=== PATIENT | female | born 1945 | race Caucasian/White ===

== ENCOUNTER 2024-06-24 09:28 | Outpatient (REF) | payer MEDICARE, SELFPAY ==
--- OUTSIDE RECORDS SUMMARY | 2024-06-26 10:15 | XMS_ITS | Clinical Summary ---
Author Organization [facility] Address [address] [place] [address] Care Team Providers Care Glost Placer Name Role Phone Quita Morris MD Primary Care Provider Allergies Active Allergy Reactions Criticality Noted Date Comments Aspirin Nausea And Vomiting 02/17/2018 Per pt okay with 81 mg enteric coated Celecoxib Itching,Other (See Comments) Low 02/17/2018 Codeine Itching 06/28/2021 Tramadol Itching 02/17/2018 Medications Medication Sig Dispensed Refills Start Date End Date Status Estradiol 10 MCG TABS Use 1 tablet vaginally 3 times per week 0 12/20/2020 Active SUMAtriptan (IMITREX) 100 MG tablet 0 12/20/2020 Active valACYclovir HCl (VALTREX PO) Take 500 mg by mouth. 0 05/27/2014 Active Probiotic Product (PROBIOTIC PO) Take by mouth daily. 0 Active Multiple Vitamins-Minerals (MULTIVITAMIN ADULTS PO) Take by mouth daily. 0 Active acetaminophen (TYLENOL EXTRA STRENGTH) 500 MG tablet Take 2 tablets (1,000 mg total) by mouth every 8 (eight) hours. 30 tablet 0 07/28/2021 Active senna-docusate (PERICOLACE) 8.6-50 MG Take 1 tablet by mouth 2 (two) times a day. 14 tablet 0 07/28/2021 Active LORazepam (ATIVAN) 0.5 MG tablet TAKE 1 TABLET BY MOUTH TWICE A DAY FOR 7 DAYS NEEDED FOR ANXIETY 0 07/19/2021 Active amoxicillin (AMOXIL) 500 MG tablet Take 4 tabs 1 hour prior to dental appointment 20 tablet 3 08/17/2021 Active HYDROcodone-acetam inophen (NORCO) 5-325 MG per tablet Take 1-2 tabs every 6 hours as needed for pain 50 tablet 0 08/29/2021 Active HYDROmorphone (Dilaudid) 2 MG tablet Take 1-2 tabs every 6-8 hours as needed for pain 30 tablet 0 09/20/2021 Active tiZANidine (ZANAFLEX) 4 MG capsule Take 1 capsule (4 mg total) by mouth every 8 (eight) hours as needed for muscle spasms. 90 capsule 1 10/11/2021 Active methocarbamol (ROBAXIN) 750 MG tablet TAKE 1 TAB EVERY 8 HOURS NEEDED FOR MUSCLE SPASMS 0 10/13/2021 Active fluconazole (DIFLUCAN) 150 MG tablet Take 1 tab at sign of yeast infection after antibiotic use. 4 tablet 1 10/26/2021 Active ibuprofen 600 MG tablet Take 600 mg by mouth every 6 (six) hours as needed. 0 11/29/2021 Active HYDROmorphone (Dilaudid) 2 MG tablet Take 1 tab every 12 hours as needed for pain 25 tablet 0 12/20/2021 Active Immunizations Name Administration Dates Next Due Covid-19 (Pfizer) Dilution Required 04/27/2021,0 07/27/2020,07/06/2020 Family History Medical History Relation Name Comments Clotting disorder Brother Relation Name Status Comments Brother Social History Tobacco Use Types Packs/Day Years Used Date Smoking Tobacco: Every Day Cigarettes Smokeless Tobacco: Never Comments:1 or 2 cigarettes/d ay - advised to quit Alcohol Use Standard Drinks/Week Comments Yes 14 (1 standard drink = 0.6 oz pure alcohol) wine or liquor - 14 drinks per week Sex and Gender Information Value Date Recorded Sex Assigned at Female 07/18/2021 11:35 AM EDT Gender Identity Female 07/27/2021 8:56 AM EDT Sexual Orientation Straight 07/27/2021 8: 56 AM EDT Job Start Date Occupation Industry Not on file Not on file Not on file Last Filed Vital Signs Vital Sign Reading Time Taken Comments Blood Pressure 111/71 07/28/2021 7:46 AM EDT Pulse 81 07/28/2021 7:46 AM EDT Temperature 37.6 ??C (99.6 ??F) 07/28/2021 7:46 AM ED T Respiratory Rate 16 07/28/2021 7:46 AM EDT Oxygen Saturation 98% 07/28/2021 7:46 AM EDT Inhaled Oxygen Concentration - - Weight 59 kg (130 lb) 07/27/2021 9:03 AM EDT Height 175.3 cm (5' 9 ) 07/27/2021 9:03 AM EDT Body Mass Index 19.2 07/27/2021 9:03 AM EDT Plan of Treatment Health Maintenance Due Date Last Done Comments Hepatitis C Screening 1944 Depression Screening 1956 Preventative Health Evaluation 1962 Tobacco Cessation Counseling 1962 Shingrix-Zoster Vaccine (1 of 2) 1994 Fall Risk Assessment 2009 Osteoporosis Screening (DEXA Scan) 2009 DTap / Tdap / Td (1 - Tdap) 06/01/2015 05/31/2015 RSV Adult > 60+ Yrs or (1 - 1-dose 75+ series) 11/02/2019 COVID-19 Vaccine ( season) 2023 04/27/2021, 07/27/2020, 07/06/2020 Influenza Vaccine (#1) 2023 , 02/24/2020, 05/25/2019, Additional history exists Pneumococcal Vaccine Completed 10/22/2018, 05/31/19 16 Hepatitis B Vaccines Aged Out No long er eligible based on patient's age to complete this topic RSV Ped < 20 months Aged Out No longe r eligible based on patient's age to complete this topic Medical Devices Implanted Type Area Photo Technologist Device Identifier Shelf Expiration Date Model / Serial / Lot Cement Bone Surg Simplex Radiopq Stry-Howm 5040-9-800-114 092 - [id number] Implanted:Qty: 1 on 07/27/2021 by Yohannes Araujo MD at [facility] [place] and Med Right: Knee [employer] [id number] 09/27/2023 6191-1-010 / / [id number] Cement Bone Surg Simplex Radiopq Stry-Howm [id number] 092 - [id number] Implanted:Qty: 1 on 07/27/2021 by Yohannes Araujo MD at [facility] [place] and Med Right: Knee [employer] [id number] 09/27/2023 6191-1-010 / / [id number] Knee Baseplt Tib Cmnt Sz5 Stry-Howm [id number] - [id number] Implanted:Qty: 1 on 07/27/2021 by Yohannes Araujo MD at [facility] [place] and [facility] Right: Knee [employer] [id number] 02/04/2026 5520-B-500 / / [id number] Knee Pat Asymmetric 96x00vo Stry-Howm 4401-[id number]-E-[id number] 32734 - [id number] Implanted:Qty: 1 on 07/27/2021 by Yohannes Araujo MD at [facility] [place] and [facility] Right: Knee [employer] [id number] 05/21/2026 5551-G-350 -E / / [id number] Knee Fem Ps Trthln Sz 4 Rt Stry-Howm [id number] [id number] - [id number] Implanted:Qty: 1 on 07/27/2021 by Yohannes Araujo MD at [facility] [place] and [facility] Right: Knee [employer] [id number] 04/09/2026 5515-F-402 / / [id number] Knee Insert Tib Ps X3 Sz5 9mm Stry-Howm [id number] [id number] - [id number] Implanted:Qty: 1 on 07/27/2021 by Yohannes Araujo MD at [facility] [place] and [facility] Right: Knee [employer] [id number] 06/07/2025 5532-G-509 / / [id number] Peg Fix Femoral Distal Stry-Howm [id number] - [id number] Implanted:Qty: 1 on 07/27/2021 by Yohannes Araujo MD at [facility] [place] and [facility] Right: Knee [employer] [id number] 10/14/2025 5575-X-000 / / [id number] Advance Directives For more information, please contact: [phone] Documents on File Type Date Recorded Patient Computerized Table Cutter Expl anation Advance Directive and Living Will 07/27/2021 Latest Code Status on File Code Status Date Activated Date Inactivated Comments Full Code 07/27/2021 11:07 AM 07/28/2021 5:02 PM This code status was ascertained in the following way: discussion with patient . Code Status History Code Status Date Activated Date Inactivated Comments Full Code 07/27/2021 8:45 AM 07/27/2021 11:07 AM This code status was ascertained in the following way: discussion with patient . Care Teams Glost Placer Relationship Specialty Start Date End Date Quita Morris MD [address] [place] [address] PCP - General Internal Medicine 12/09/20
--- OUTSIDE RECORDS SUMMARY | 2024-06-26 10:15 | XMS_ITS ---
Author Name [facility] Organization Unknown History of Medication Use Medication Directions Dispensed Refills Start Date End Date Stat hydromorphone 2 mg tablet TAKE 1 TAB EVERY 12 HOURS NEEDED FOR PAIN 4 completed valacyclovir 500 mg tablet active sumatriptan 100 mg tablet PLEASE SEE ATTACHED FOR DETAILED DIRECTIONS active sulfamethoxazole 800 mg-trimethoprim 160 mg tablet TAKE 1 TABLET BY MOUTH EVERY 12 HOURS FOR 7 DAYS DRINK PLENTY OF FLUIDS active hydrocodone 5 mg-acetaminophen 325 mg tablet TAKE 1 TO 2 TABLETS BY MOUTH EVERY 6 HOURS NEEDED FOR PAIN 4 completed sertraline 50 mg tablet 5 completed amoxicillin 500 mg capsule TAKE 4 CAPSULES 1 HOUR PRIOR TO DENTAL APPOINTMENT 5 completed bupropion HCl SR 150 mg tablet,12 hr sustained-release TAKE 1 TABLET BY MOUTH TWICE A DAY 5 completed Yuvafem 10 mcg vaginal tablet USE 1 TABLET VAGINALLY 3 TIMES PER WEEK active Medrol (Reji) 4 mg tablets in a dose pack follow package directions 05/29/2024 active amoxicillin 500 mg tablet TAKE 4 TABS 1 HOUR PRIOR TO DENTAL PROCEDURE 5 completed cephalexin 500 mg capsule TAKE 1 CAPSULE BY MOUTH FOUR TIMES A DAY FOR 10 DAYS 4 completed meloxicam 7.5 mg tablet TAKE 1 TABLET BY MOUTH EVERY DAY 5 completed Medrol (Reji) 4 mg tablets in a dose pack active methocarbamol 500 mg tablet TAKE 2 TABLETS BY MOUTH TWICE A DAY NEEDED NOT COVERED THROUGH INSURANCE 5 completed methocarbamol 750 mg tablet TAKE 1 TAB EVERY 8 HOURS NEEDED FOR MUSCLE SPASMS 4 completed fluconazole 150 mg tablet TAKE ONE DOSE NOW AND REPEAT IN 3 DAYS active lorazepam 0.5 mg tablet TAKE 1 TABLET BY MOUTH DAILY NEEDED FOR ANXIETY 5 completed nitrofurantoin monohydrate/macrocryst als 100 mg capsule TAKE 1 CAPSULE BY MOUTH DAILY NEEDED (POST-COITAL). 5 completed alendronate 70 mg tablet PLEASE SEE ATTACHED FOR DETAILED DIRECTIONS active ibuprofen 600 mg tablet TAKE 1 TABLET BY MOUTH EVERY 6 HOURS NEEDED active tretinoin 0.025 % topical cream APPLY SPARINGLY TO BROWN SPOT ON FACE NIGHTLY TOLERATED active celecoxib 200 mg capsule TAKE 1 CAPSULE BY MOUTH EVERY DAY 5 completed sertraline 25 mg tablet TAKE 1 TABLET BY MOUTH EVERY DAY 5 completed ibuprofen 800 mg tablet TAKE 1 TABLET BY MOUTH 3 TIMES A DAY NEEDED. 5 completed methocarbamol 750 mg tablet TAKE 1 TAB EVERY 8 HOURS NEEDED FOR MUSCLE SPASMS 4 completed ibuprofen 600 mg tablet TAKE 1 TABLET BY MOUTH EVERY 6 HOURS NEEDED active valacyclovir 500 mg tablet active lorazepam 0.5 mg tablet TAKE 1 TABLET BY MOUTH DAILY NEEDED FOR ANXIETY 4 active ibuprofen 800 mg tablet active amoxicillin 500 mg tablet TAKE 4 TABS 1 HOUR PRIOR TO DENTAL PROCEDURE active fluconazole 150 mg tablet TAKE 1 TABLET BY MOUTH AT SIGN OF YEAST INFECTION AFTER ANTIBIOTIC USE active sumatriptan 100 mg tablet PLEASE SEE ATTACHED FOR DETAILED DIRECTIONS active Problems Problem Status Onset Date Problem Type Date of Resoluti on Source Lumbar spondylosis active 2024-06-23 ProblemAct [facility] History of total knee arthroplasty active 2024-03-10 ProblemAct [facility] 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
--- OUTSIDE RECORDS SUMMARY | 2024-06-26 10:15 | XMS_ITS | Data Portability ---
Author Organization [place] [facility] She[facility] Mendoza [facility] [place] Address [address] [place] [address] Care Team Providers Care Interior Designer Name Role Phone GINO MARTE Primary Care Provider GINO MARTE Referring Provider IGNO SANTIAGO Primary Care Provider Assessment Encounter Date Assessment Date Assessment LastModified by Organization Details LastModified Time 07/24/2022 07/24/2022 Ms. Kidd continues to do very well after undergoing right total knee replacement surgery on July 27, 2021. She will continue with her exercise program. She does know to take antibiotics before any dental work. She will contact me prior to her annual follow-up appointment should any questions or concerns arise. [email or web address] Not available 07/24/2022 13:02:02 05/31/2023 05/31/2023 Status post righ t total knee replacement surgery on July 27, 2021 CONSUELO. Patient with fall approximately 2 months ago does not appear that she had any long-lasting sustaining injury there does not appear to be any acute bony abnormality or obvious signs of loosening. Her clinical exam is overall unremarkable. I do encourage her to do continue with stretching exercises I also offered her therapy for which she declined. She should continue with her antibiotic prophylaxis prior to dental work. She has a follow-up appointment at her annual date should her symptoms not improve or worsen she should contact my office immediately she agrees with this plan. She can take [id number] pain medication for mild symptomatic relief. Patient was seen and evaluated by Mendy Hernandez PA-C in indirect conjuction with Documenting Provider: Donis Loaiza MD . He/She agrees with history, physical examination, tests/diagnostic imaging, and treatment plan. Additional treatment plan discussed with the patient (only initiated if in boldface font) otherwise not applicable. Treatment may include the following; - Provider focused nonsteroidal anti-inflammatory regimen (discussed were the pros, cons, benefits and risks as well as any black box warnings) in patients over 60 years old they should be very cautious in taking these medications due to potential decreased kidney function and or elevated blood pressure. - Analgesic pain medication for pain suppression (discussed were the pros, cons, benefits and risks as well as any black box warnings) - The use of topical pain relieving medication were discussed - The use of ice to decrease inflammation and pain - The use of assistive ambulatory devices for ambulation and fall prevention - Formal specific guided physical therapy program I reviewed my findings at length with the patient today. ? ? ?We discussed the nature and etiology of this problem along with current treatment options. We discussed the expected course and outcomes and what to expect. We also discussed risks and benefits. ? ? ? All of their questions were answered today, and there was exhibited understanding and comprehension of all that was discussed. Time Spent: 10 minutes were spent reviewing previous imaging and charting. ? ? ?10 minutes were spent obtaining patient history. ? ? ?5 minutes were spent on physical exam. ? ? ?5? ? ?minutes were spent explaining diagnosis and assessment. Today's documentation was made using voice recognition software. This note may contain grammatical errors secondary to the software. [email or web address] Not available 05/31/2023 13:56:28 02/27/2024 02/27/2024 Acute right knee pain 2 years following her right knee replacement. Low suspicion for infection however will order an ESR, CRP and white blood cell count. Will also obtain a CT scan to assure there is no hardware loosening or failure or concerns of further infection. I will follow her results and contact her as needed. She will also follow-up with our specialist in 1 week for repeat assessment, sooner if needed. We discussed reasons to present to the emergency department as well. Patient was seen and evaluated by Dani Jarquin PA-C in indirect conjunction with Documenting Provider: Kev Loaiza MD He/She agrees with history, physical examination, tests/diagnostic imaging, and treatment plan [email or web address] Not available 02/27/2024 13:44:08 03/10/2024 03/10/2024 78-year-old female status post right sided total knee arthroplasty in June [address] Alcantar. She had a recent experience of right knee pain following overexertion. It is since resolved completely. There is no clear evidence for failure of her prosthetic or evidence of sepsis. She has an incidental recurrence of left-sided sciatica. Follow-up will be arranged with a member of our nonsurgical spine team and I will provide her prescription for ibuprofen 800 mg strength as a courtesy. This patient was seen and evaluated by Mendy Fontanez MS, PAToo in indirect conjunction with documenting/super vising provider Donis Loaiza MD. He agrees with history, physical examination, tests/diagnostic imaging, and treatment plan. This document was generated using voice recognition software. As a result, there may be unintended spelling, grammatical and/or textual errors. [email or web address] Not available 03/10/2024 14:37:24 05/29/2024 05/29/2024 HPI : Patient is here for complaints of right knee pain x-ray right total knee replacement. She is about 3 years from right total knee replacement with Dr. Alcantar. She was seen in February by Mendy Fontanez. She was having increased pain after overactivity. This resolved after a few days. He did get ESR and CRP which were negative for infection. She states she was doing well until a few days ago where she again had increased pain with overactivity. It is focused on the knee, but she does have rating pain going from the buttock down to the foot. She also has this on her left side. Physical Exam : Patient is well nourished, well-developed, in no acute distress, with appropriate mood and affect. The patient is oriented to time, place, and person. Respirations are even and unlabored. There is no inguinal adenopathy. Examination of the contralateral knee shows normal range of motion, strength, no tenderness, and intact skin. The affected limb is well-perfused, with well healed skin incision. The patient demonstrates good knee motion, stability, and strength. The knee moves from 0-130 degrees. The alignment of the knee is neutral. Muscle strength is normal. Pedal pulses are palpable. Hip examination, including flexion and internal rotation, was negative in that groin pain was not produced. Assessment/Plan : Patient was having some increased pain x-ray right total knee replacement with Dr. Araujo. Exam, imaging, and history do not show any signs of implant related issues including loosening, malposition, instability, periprosthetic fracture, or infection. She may have component of tendinitis next to her knee replacement. Overall she was reassured that there are no issues with her knee replacement. She also does seem to have some sciatica related pain, she has this known issue in the left side, but there may be a right-sided component as well. I am prescribing her an oral steroid taper medication. She is interested in evaluation by our spine team for potential sciatica. She will follow-up with one of the spine PAs. Follow-up with the arthroplasty team as needed. Not available 05/29/2024 13:51:55 Plan of Treatment Reminders Order Date Submit Date Provider Last Modified By Organization Details Last Modified Time Details Appointments None recorded. Lab ESR (erythrocyt e sedimentati on rate), blood - Joint pain status post arthroplast y, evaluate for joint infection 2023 024 KEILY Not available 4 10:25:25 C-reactive protein, quantitativ e, serum or plasma - Joint pain status post arthroplast y, evaluate for joint infection 2023 024 KEILY Not available 4 09:45:28 wbc diff, auto, blood 2023 024 KEILY Not available 4 09:59:26 Referral None recorded. Procedures None recorded. Surgeries None recorded. Imaging XR, knee, 3 view 2024 025 [email or web address] 2 [facility], [address], [place], [address], 5 14:10:01 XR, knee, 3 view 2023 024 [email or web address] [facility], [address], [address], [place], [address], 4 14:39:20 [place], knee, w/o contrast - evaluate prosthetic components, acute pain 2023 024 [facility], [address], [address], [place], [address], 4 08:12:06 XR, knee, 3 view 2023 024 [email or web address] [facility], [address], [address], [place], [address], 4 12:50:49 XR, knee, 1 or 2 view 2022 023 [email or web address] [facility], [address], [address], [place], [address], 3 10:09:15 Medication Orders Medrol (Reji) 4 mg tablets in a dose pack 2024 025 KEILY [facility], [address] [place] [address], [address], 5 13:41:10 ibuprofen 800 mg tablet 2023 025 Blood cell Storage [facility], [address] [place] [address], [address], 5 13:36:16 Patient TargetsNo targets recorded. Patient Instructions Encounter Date Encounter Id Patient Instructions Last Modified By Organization Details Last Modified Time 02/27/2024 [id number] X-rays of the right knee were obtained on 02/27/2024 which is negative for acute fracture. No signs of hardware loosening or failure. [email or web address] Not available 02/27/2024 13:44:19 05/29/2024 [id number] AP, lateral, and patellar radiographs of the right knee taken today demonstrate satisfactory position and alignment of components following right total knee replacement. Not available 05/29/2024 13:50:03 Reason for Referral None Reported. Results Created Date Observation Date Name Description Value Unit Range Abnormal Flag Note LastModifiedBy Organization Detail LastModifiedTime Result Notes None recorded. Problems Name Problem SNOMED Code Status Onset Date Resolution Date Notes Provider Name and Address Organization Details Recorded Time History of total knee arthroplast y 1580315876767 Active 2023 MENDY FONTANEZ PA-C [address] [facility],[address], [place], [address], [place] [facility], [facility] 4 14:37:36 Disorder of left sciatic nerve 5191781355882 00 Active 2024 Donis Loaiza MD [address], [place], [address], [place] [facility], [facility] 5 13:49:35 Lumbar spondylosis 629862006 Active 2024 SHARRON STERLING PA-C [address], [place], [address], [place] [facility], [facility] 5 16:34:26 Problem Notes None recorded. Procedures Surgical History Date Name Laterality Status Provider Name and Address Organization Details Recorded Time Total knee arthroplasty completed Franca Cardoso [place] - [facility] 05/29/2024 13:38:02 surgical procedure on cervical spine completed Kera Leblanc [place] - [facility] 07/24/2022 10:44:00 Imaging Results None recorded. Procedure Notes None recorded. Medical Equipment None Reported. Allergies No known drug allergies Medications Name Sig Start Date Stop Date Status Note LastModified by Organization Details LastModified Time celecoxib 200 mg capsule TAKE 1 CAPSULE BY MOUTH EVERY DAY 05/29 completed Not Available Not Available Not Available amoxicillin 500 mg capsule TAKE 4 CAPSULES 1 HOUR PRIOR TO DENTAL APPOINTME NT 05/29 completed Not Available Not Available Not Available methocarbam ol 500 mg tablet TAKE 2 TABLETS BY MOUTH TWICE A DAY NEEDED NOT COVERED THROUGH INSURANCE 05/29 completed Not Available Not Available Not Available bupropion HCl SR 150 mg tablet,12 hr sustained-r elease TAKE 1 TABLET BY MOUTH TWICE A DAY 05/29 completed Not Available Not Available Not Available ibuprofen 800 mg tablet TAKE 1 TABLET BY MOUTH 3 TIMES A DAY NEEDED. 05/29 completed Not Available Not Available Not Available fluconazole 150 mg tablet TAKE ONE DOSE NOW AND REPEAT IN 3 DAYS active Not Available Not Available No t Available sumatriptan 100 mg tablet PLEASE SEE ATTACHED FOR DETAILED DIRECTION S active Not Available Not Available No t Available hydrocodone 5 mg-acetamin ophen 325 mg tablet TAKE 1 TO 2 TABLETS BY MOUTH EVERY 6 HOURS NEEDED FOR PAIN 05/31 completed Not Available Not Available Not Available tretinoin 0.025 % topical cream APPLY SPARINGLY TO BROWN SPOT ON FACE NIGHTLY TOLERATED active Not Available Not Available No t Available Medrol (Reji) 4 mg tablets in a dose pack Take per package instructi ons 2024 active Not Available Not Available Not Avai lable alendronate 70 mg tablet PLEASE SEE ATTACHED FOR DETAILED DIRECTION S active Not Available Not Available No t Available valacyclovi r 500 mg tablet active Not Available Not Available Not Available sulfamethox azole 800 mg-trimetho prim 160 mg tablet TAKE 1 TABLET BY MOUTH EVERY 12 HOURS FOR 7 DAYS DRINK PLENTY OF FLUIDS active Not Available Not Available No t Available amoxicillin 500 mg tablet TAKE 4 TABS 1 HOUR PRIOR TO DENTAL PROCEDURE 05/29 completed Not Available Not Available Not Available meloxicam 7.5 mg tablet TAKE 1 TABLET BY MOUTH EVERY DAY 05/29 completed Not Available Not Available Not Available hydromorpho ne 2 mg tablet TAKE 1 TAB EVERY 12 HOURS NEEDED FOR PAIN 05/31 completed Not Available Not Available Not Available lorazepam 0.5 mg tablet TAKE 1 TABLET BY MOUTH DAILY NEEDED FOR ANXIETY 05/29 completed Not Available Not Available Not Available methocarbam ol 750 mg tablet TAKE 1 TAB EVERY 8 HOURS NEEDED FOR MUSCLE SPASMS 05/31 completed Not Available Not Available Not Available cephalexin 500 mg capsule TAKE 1 CAPSULE BY MOUTH FOUR TIMES A DAY FOR 10 DAYS 05/31 completed Not Available Not Available Not Available sertraline 25 mg tablet TAKE 1 TABLET BY MOUTH EVERY DAY 05/29 completed Not Available Not Available Not Available ibuprofen 600 mg tablet TAKE 1 TABLET BY MOUTH EVERY 6 HOURS NEEDED active Not Available Not Available No t Available sertraline 50 mg tablet 05/29 completed Not Available Not Available Not Available nitrofurant oin monohydrate /macrocryst als 100 mg capsule TAKE 1 CAPSULE BY MOUTH DAILY NEEDED (POST-COI ASHA). 05/29 completed Not Available Not Available Not Available Yuvafem 10 mcg vaginal tablet USE 1 TABLET VAGINALLY 3 TIMES PER WEEK active Not Available Not Available No t Available Vitals Date Recorded Body height Provider Name an d Address Organization Details Last Updated DateTime 05/31/[address] [place] [facility] 05/31/2023 11:41:42 Date Recorded Body height Body mass index (BMI) Body weight Provider Name and Address Organization Details Last Updated DateTime 02/27/2024 175.26 cm 19.9 kg/m2 [address] - [facility] [place] 02/27/2024 13:12:25 Date Recorded Body height Body mass index (BMI) Body weight Provider Name and Address Organization Details Last Updated DateTime 05/29/2024 175.26 cm 19.3 kg/m2 [address]348.[address] [place] [facility], [facility] 05/29/2024 13:36:58 Date Recorded Body height Body mass index (BMI) Body weight Provider Name and Address Organization Details Last Updated DateTime 06/22/2024 175.26 cm 19.2 kg/m2 86358.[address] [place] - [facility] [place] 06/22/2024 13:37:40 Date Recorded Body height Body mass index (BMI) Body weight Provider Name and Address Organization Details Last Updated DateTime 07/24/2022 175.26 cm 18.5 kg/m2 [address]270.[address] [place] - [facility] 07/24/2022 10:42:48 Social History Question Answer Notes LastModified by Organizat ion Details LastModified Time Tobacco Smoking Status Current Every Day Smoker Oral Jose [facility], [place] - [facility] 02/27/2024 13:12:53 What Is Your Level Of Alcohol Consumption? Occasional Information not available 02/27/2024 Do You Use Any Illicit Or Recreational Drugs? No Information not available 02/27/2024 Sex: Unknown Functional Status None recorded. Mental Status None recorded. Family History Relationship Description Onset Age of this Age Resolved Age Notes LastModified by Organization Details LastModified Time Sister Rheumatoid arthritis [email or web address] Not available 2022 10:43:11 Father Heart disease [email or web address] Not available 2022 10:43:28 Medical History Condition Response Coronary Artery Disease N Gout N Hyperthyroidism N Blood Transfusion N MRSA N Emphysema N Depression N COPD N Hypothyroidism N Pacemaker N Vascular Disease N Gastrointestinal Disease N Anxiety Disorder N Autoimmune disease N Arthritis N Cancer N Stroke N High Cholesterol N Neurologic Disorder N Liver Disease N Organ Transplant N Arrhythmia N Rheumatoid Arthritis N Fibromyalgia N Kidney Disease N Allergies/Hayfever N Adverse Reaction to Anesthesia N Thyroid Problems N Anemia N Brain Injury N Heart Attack (DE) N Osteopenia N Diabetes N Bleeding Disorder N Seizures/Epilepsy N AIDS/HIV N Congestive Heart Failure (CHF) N Asthma N Amputation N Reflux/GERD N Sleep Apnea N Hepatitis N Aneurysm N Heart Disease N Pulmonary Embolism N Hypertension N Osteoporosis Y Gynecological HistoryNo gynecological history recorded. Obstetrics History GPAL:G 0 P 0 0 0 0 Past Encounters Encounter ID Performer Location Encounter Start Date Encounter Closed Date Diagnosis/Indication Diagnosis SNOMED-CT Code Diagnosis ICD10 Code Diagnosis Note [id number] MD LUCIO Bowser [address] [facility] [address] [place] [address] 07/24/2022 10:31:34 07/24/2022 11:25:39 Pain of right knee joint 4735695272 59277 M25.561 [id number] MD LUCIO Chao [address] [address] 05/31/2023 11:01:05 05/31/2023 11:37:55 History of right total knee replacement 7940950705 975973 Z96.651 [id number] [facility] [address] [place] [address] [address] [place] [address] 02/27/2024 12:36:18 02/27/2024 14:05:06 History of right total knee replacement 8495647168 636960 Z96.651 [id number] MD LUCIO Chao [address] [address] 03/10/2024 14:22:18 03/10/2024 14:37:39 History of total knee arthroplasty 3827248722 105 Z96.651 [id number] Donis Loaiza MD [address] [address] 05/29/2024 13:17:25 05/29/2024 14:10:01 History of right total knee replacement 1568541862 680698 Z96.651 Surgical follow-up 31538 4000 Z47.1 Z96.651 Disorder o f left sciatic nerve 0762999408 81474 M54.32 Health Concerns Section Related Observation LastModified by Organization Detai ls LastModified Time None Recorded Concern Status LastModified by Organization Details LastModified Time None Recorded Advance Directives Directive None Recorded Payers Encounter Date Sequence Insurance Name Policy Number Policy Qiu Covered Member ID Qiu Member ID Guarantor Name 07/24/2022 1 [place] Samantha A Marti [id number] 5 Samantha Marti 07/24/2022 2 [place] [id number] Samantha A Marti [id number] Samantha Marti 02/27/2024 2 [place] [id number] Samantha Primitivo Kidd [id number] Samantha Marti 02/27/2024 1 [place] Samantha A Marti [id number] Samantha Marti 03/10/2024 1 [place] Samantha A Marti [id number] Samantha Marti 03/10/2024 2 [place] [id number] Samantha A Marti [id number] Samantha Marti 05/29/2024 1 [place] Samantha A Marti [id number] 5 Samantha Marti 05/29/2024 2 [place] [id number] Samantha A Marti [id number] Samantha Marti Notes Date Note Type Note Provider Name and Address Organization Details Recorded Time 07/24/2022 text/html The patient presents with complaints of mild intermittent discomfort in her right knee after undergoing right total knee replacement surgery on July 27, 2021. She denies any fevers or chills. She continues to go to the [facility] for exercise class as well as ride her stationary bike. She does not take any medicines for her discomfort. MD Vernon Bowser [facility] [address], [place], [address], [place] - [facility] 07/24/2022 13:02:15 05/31/2023 text/html Right total knee replacement surgery on July 27, 2021. CONSUELO 77-year-old female status post right total knee replacement by Dr. Araujo on the above-noted date. She states she suffered a fall approximately 2 months ago for which she landed on her knee low velocity impact. She states she has had soreness since. However she does admit to not doing her stretching exercises she also complains of chronic back problems. She states nocturnal symptoms with discomfort for which are alleviated after [id number] pain medication. She is here for evaluation treatment She does not complain of any left knee pain Three-view x-ray of the right knee reveals well-seated well-positioned total knee arthroplasty without sign of loosening. No acute bony abnormality. This is compared to prior study 07/24/2022. MENDY HERNANDEZ PA-C 299 [facility] [address], [place], [address], [place] - [facility], [facility] 05/31/2023 13:56:47 02/27/2024 text/html Samantha Kidd is a 78 year old female who presents today As a walk-in patient for evaluation of her acute right knee pain. This began yesterday morning after raking in her yard. She is unable to bear weight. She has pain with range of motion. Her pain is a 4 to a 6 on a 10 point scale. She also has low back pain to the position that she is sitting in. Her pain is constant. She denies fevers or feeling unwell. Medical history significant for osteoporosis and psoriasis. She underwent a right knee replacement in 2021 with Ronald Araujo. She smokes a few cigarettes per day. She socially drinks alcohol. DANI JARQUIN PA-C [address], [place], [address], [place] [facility] 02/27/2024 13:56:28 03/10/2024 text/html 78-year-old fema denver presents for recheck of right knee. She reports that her episode of pain following 3 days worth of yard work has since completely resolved. She was seen by Dani Jarquin with examination and x-ray and she was sent for lab work. The labs have come back within normal limits. She has a CRP of less than 1, sed rate of 4, and white blood cell count of 5.7. She does bring to my attention a recurrence of my sciatica and states that she is having left low back pain that radiates down the left leg. She specifically requests a prescription for ibuprofen. MENDY FONTANEZ PA-C [address] [place] [address], [place], [address], [place] - [facility] 03/10/2024 14:38:16 OBGyn Episode No OBEpisode recorded.
== END 2024-06-24 09:29 | disposition home or self-care (01) ==
LOC: HO.HOSX 09:28
PROVIDERS: Visit Provider Orthopaedic Surgery
DX: Z13.89 Encounter for screening for other disorder (principal)